=== PATIENT | male | born 1960 | race American Indian/Alaskan Native ===

== ENCOUNTER 2016-07-29 07:24 | Emergency (ER) | payer MEDICAID ==
[2016-07-29 07:31] VITALS: BP 136/87; PULSE 76; RESP 20; TEMP 98; O2SAT 98
--- NOTE | 2016-07-29 07:58 | C.PDOC ---
History Of Present Illness 55-year-old male, denies significant PMHx, presents to the emergency department with complaints of painful region to the right side of his tongue. patient states he developed a white spot on the right side of his tongue, four days ago. Yesterday, the area became painful, which worsened with movement of the tongue. Patient denies any trauma, fevers, chills, nausea/vomiting, diarrhea, dizziness, back pain, recent travel, or any other associated symptoms. No other complaints at this time. Time Seen by Provider: 07/29/16 07:33 Chief Complaint (Nursing): ENT Problem History Per: Patient History/Exam Limitations: None Onset/Duration Of Symptoms: Days (4) Current Symptoms Are (Timing): Still Present Severity: Moderate Past Medical History Reviewed: Historical Data, Nursing Documentation, Vital Signs Vital Signs: Last Vital Signs Temp 98 F 07/29/16 07:26 Pulse 76 07/29/16 07:26 Resp 20 07/29/16 07:26 BP 136/87 07/29/16 07:26 Pulse Ox 98 07/29/16 08:17 Surgical History: Appendectomy Family History: States: No Known Family Hx - Social History Hx Alcohol Use: Yes Hx Substance Use: No - Immunization History Hx Tetanus Toxoid Vaccination: No Hx Influenza Vaccination: No Hx Pneumococcal Vaccination: No Review Of Systems Except As Marked, All Systems Reviewed And Found Negative. Constitutional: Negative for: Fever, Chills, Malaise ENT: Positive for: Other (Tongue pain.). Negative for: Nose Discharge, Nose Congestion, Throat Pain Respiratory: Negative for: Shortness of Breath Gastrointestinal: Negative for: Nausea, Vomiting Neurological: Negative for: Weakness, Numbness Physical Exam - Physical Exam Appears: Non-toxic, No Acute Distress Skin: Warm, Dry, No Rash Head: Atraumatic, Normacephalic Eye(s): bilateral: Normal Inspection, PERRL, EOMI Nose: Normal Oral Mucosa: Moist Tongue: Other (1cm white plaque to right side of tongue. No tenderness, vesicles , swelling, erythema, discharge, or bleeding. ) Lips: Normal Appearing Teeth: Normal Dentition Gingiva: Normal Appearing Neck: Normal ROM Lymphatic: Normal Exam, No Adenopathy Chest: Symmetrical, No Tenderness Cardiovascular: Rhythm Regular, No Friction Rub, No Murmur Respiratory: Normal Breath Sounds, No Rales, No Rhonchi, No Wheezing Extremity: Normal ROM Neurological/Psych: Oriented x3, Normal Speech, Normal Cranial Nerves, Normal Motor Gait: Steady ED Course And Treatment O2 Sat by Pulse Oximetry: 98 Medical Decision Making Medical Decision Making: Differential Diagnosis: Apthous ulcer, leukoplakia, herpetic lesion. Discharge: Patient will be discharged with Rx for Gelclair and instructions to f/u outpatient with oral surgeon. Asked to return if symptoms persist or worsen. All questions answered. Disposition - Disposition Referrals: Esther Escamilla DMD [Staff Provider] - Naya Lisa DMD [Staff Provider] - Disposition: HOME/ ROUTINE Disposition Time: 07:57 Condition: FAIR Additional Instructions: Follow up with the oral surgeon within 1-2 days for further evaluation. Prescriptions: Pot Sor/He-Cellulos/Pov/Hyalur [Gelclair 15 ml] 15 ml MM BID #1 gel Instructions: Canker Sores (ED) - Clinical Impression Clinical Impression: Tongue lesion - Scribe Statement The provider has reviewed the documentation as recorded by the Michelleibselam Cristobal All medical record entries made by the Scribe were at my direction and personally dictated by me. I have reviewed the chart and agree that the record accurately reflects my personal performance of the history, physical exam, medical decision making, and the department course for this patient. I have also personally directed, reviewed, and agree with the discharge instructions and disposition.
== END 2016-07-29 08:16 | disposition home or self-care (01) ==
LOC: C.ER 07:24
DX: K14.8 Other diseases of tongue (principal)

== ENCOUNTER 2018-05-29 13:08 | Outpatient (CLI) | payer MEDICAID | END 2018-05-29 13:09 | disposition home or self-care (01) | LOC: C.MRIC 13:08 | DX: M76.61 Achilles tendinitis, right leg (principal) ==